=== PATIENT | male | born 1950 | race Caucasian/White ===

== ENCOUNTER → 2020-04-03 10:52 | Outpatient (CLI) | payer MEDICARE, OTHER, SELFPAY ==
--- NOTE | 2020-04-03 10:58 | DI.RAD.S_ITS ---
PROCEDURE: XR CERVICAL SPINE 2V OR 3V INDICATIONS: Neck pain TECHNIQUE: 3 view(s) of the cervical spine were acquired. COMPARISON: None. FINDINGS: Bones: No fractures or dislocations to the C7-T1 level. The lateral masses of C1 appear intact on the odontoid view. No suspicious bony lesions. There is trace C4 on C5 and C5 on C6 retrolisthesis. Moderate degenerative changes including intervertebral disc space narrowing and osteophytosis are noted throughout the cervical spine. Soft tissues: No prevertebral soft tissue swelling. IMPRESSION: Degenerative change and trace retrolisthesis. Dictated by: Estelita Palma M.D. on 04/03/2020 at 14:57 Approved by: Estelita Palma M.D. on 04/03/2020 at 14:58
[2020-04-03 12:33] LABS: Creatinine Urine Random 108.7 mg/dL
[2020-04-03 12:38] LABS: Microalbumin Urine Random < 0.6 mg/dL (0-1.6)
== END ==
PROVIDERS: PCP Student in an Organized Health Care Education/Training Program; Referring Provider Student in an Organized Health Care Education/Training Program; Visit Provider Student in an Organized Health Care Education/Training Program
DX: M54.2 Cervicalgia (principal); E11.9 Type 2 diabetes mellitus without complications
CPT/HCPCS: 72040; 82043; 82570

== ENCOUNTER → 2020-06-10 10:15 | Outpatient (CLI) | payer MEDICARE, OTHER, SELFPAY ==
[2020-06-10] MEDS: COVID-19 VACC #1, MRNA(MOD) 100 MCG/0.5 ML VIAL IM (10:27)
== END ==
PROVIDERS: PCP Student in an Organized Health Care Education/Training Program; Visit Provider Internal Medicine
DX: Z23 Encounter for immunization (principal)
CPT/HCPCS: 0011A; 91301

== ENCOUNTER → 2020-07-08 09:55 | Outpatient (CLI) | payer MEDICARE, OTHER, SELFPAY ==
[2020-07-08 10:44] LABS: Hemoglobin A1C% w Est Avg Glu 6.2 % (4.0-6.0)
== END ==
PROVIDERS: PCP Student in an Organized Health Care Education/Training Program; Referring Provider Student in an Organized Health Care Education/Training Program; Visit Provider Student in an Organized Health Care Education/Training Program
DX: E11.9 Type 2 diabetes mellitus without complications (principal)
CPT/HCPCS: 36415; 83036

== ENCOUNTER → 2020-07-08 10:17 | Outpatient (CLI) | payer MEDICARE, OTHER, SELFPAY ==
[2020-07-08] MEDS: COVID-19 VACC #2, MRNA(MOD) 100 MCG/0.5 ML VIAL IM (10:31)
== END ==
PROVIDERS: PCP Student in an Organized Health Care Education/Training Program; Visit Provider Internal Medicine
DX: Z23 Encounter for immunization (principal)
CPT/HCPCS: 0012A; 91301

== ENCOUNTER → 2020-10-14 10:11 | Outpatient (CLI) | payer MEDICARE, OTHER, SELFPAY ==
[2020-10-14 11:21] LABS: Hemoglobin A1C% w Est Avg Glu 6.1 % (4.0-6.0)
[2020-10-14 11:33] LABS: Alanine Aminotransferase 16 IU/L (<50); Albumin 3.9 g/dL (3.5-5.0); Albumin Globulin Ratio 1.6 (1.0-2.8); Alkaline Phosphatase 52 U/L (38-126); Aspartate Aminotransferase 21 IU/L (17-59); BUN Creatinine Ratio 20.7 (6-22); Bilirubin Total 0.3 mg/dL (0.2-1.3); Blood Urea Nitrogen 23 mg/dL (9-20); Calcium 9.5 mg/dL (8.4-10.2); Carbon Dioxide 28 mmol/L (22-32); Chloride 103 mmol/L (98-107); Estimated Glomerular Filt Rate > 60.0 mL/min (>60); Globulin 2.4 g/dL (1.7-4.1); Glucose 107 mg/dL (80-110); HEMOLYSIS < 15 (0-50); Sodium 137 mmol/L (137-145); Total Protein 6.3 g/dL (6.3-8.2)
[2020-10-14 11:37] LABS: Potassium 5.1 mmol/L (3.4-5.1)
== END ==
PROVIDERS: PCP Student in an Organized Health Care Education/Training Program; Referring Provider Student in an Organized Health Care Education/Training Program; Visit Provider Student in an Organized Health Care Education/Training Program
DX: E11.9 Type 2 diabetes mellitus without complications (principal); I10 Essential (primary) hypertension
CPT/HCPCS: 36415; 80053; 83036

== ENCOUNTER → 2020-10-21 11:28 | Outpatient (CLI) | payer MEDICARE, OTHER, SELFPAY ==
[2020-10-21 12:45] LABS: Prostate Specific Antigen 3.68 ng/mL (0.10-4.00)
== END ==
PROVIDERS: PCP Student in an Organized Health Care Education/Training Program; Referring Provider Specialist; Visit Provider Specialist
DX: N40.1 Benign prostatic hyperplasia with lower urinary tract symptoms (principal); N13.8 Other obstructive and reflux uropathy; Z80.42 Family history of malignant neoplasm of prostate
CPT/HCPCS: 36415; 84153; 99213

== ENCOUNTER → 2021-04-15 10:45 | Outpatient (CLI) | payer MEDICARE, OTHER, SELFPAY | PROVIDERS: PCP Student in an Organized Health Care Education/Training Program; Referring Provider Student in an Organized Health Care Education/Training Program; Visit Provider Student in an Organized Health Care Education/Training Program | DX: E11.9 Type 2 diabetes mellitus without complications (principal) | CPT/HCPCS: 36415; 83036 ==

== ENCOUNTER → 2021-10-09 09:03 | Outpatient (CLI) | payer MEDICARE, OTHER, SELFPAY ==
[2021-10-09 10:14] LABS: Creatinine Urine Random 181.4 mg/dL
[2021-10-09 10:22] LABS: Microalbumin Urine Random < 0.6 mg/dL (0-1.6)
[2021-10-09 10:29] LABS: Hemoglobin A1C% w Est Avg Glu 6.8 % (4.0-6.0)
[2021-10-09 11:03] LABS: Aspartate Aminotransferase 23 IU/L (17-59); BUN Creatinine Ratio 15.2 (6-22); Blood Urea Nitrogen 17 mg/dL (9-20); Calcium 9.1 mg/dL (8.4-10.2); Carbon Dioxide 29 mmol/L (22-32); Chloride 104 mmol/L (98-107); Cholesterol 195 mg/dL (140-199); Estimated Glomerular Filt Rate > 60 mL/min (>60); Glucose 133 mg/dL (80-110); HDL Cholesterol 43 mg/dL (40-60); HEMOLYSIS < 15 (0-50); LDL Cholesterol Calculated 114 mg/dL (<100); Potassium 4.5 mmol/L (3.4-5.1); Sodium 139 mmol/L (137-145); Triglycerides 191 mg/dL (35-150)
[2021-10-09 11:32] LABS: Prostate Specific Antigen 4.46 ng/mL (0.10-4.00)
== END ==
PROVIDERS: Student in an Organized Health Care Education/Training Program; PCP Internal Medicine; Referring Provider Specialist; Visit Provider Specialist
DX: R97.20 Elevated prostate specific antigen [PSA]; E11.9 Type 2 diabetes mellitus without complications; E11.69 Type 2 diabetes mellitus with other specified complication; E78.5 Hyperlipidemia, unspecified
CPT/HCPCS: 36415; 80048; 80061; 82043; 82570; 83036; 84153; 84450

== ENCOUNTER → 2022-01-27 09:37 | Outpatient (CLI) | payer MEDICARE, OTHER, SELFPAY ==
[2022-01-27 10:53] LABS: Hemoglobin A1C% w Est Avg Glu 6.2 % (4.0-6.0)
[2022-01-27 11:30] LABS: Prostate Specific Antigen 3.62 ng/mL (0.10-4.00)
== END ==
PROVIDERS: PCP Internal Medicine; Referring Provider Specialist; Visit Provider Specialist
DX: R97.20 Elevated prostate specific antigen [PSA] (principal); E11.69 Type 2 diabetes mellitus with other specified complication; E78.5 Hyperlipidemia, unspecified
CPT/HCPCS: 36415; 83036; 84153

== ENCOUNTER → 2022-07-28 09:21 | Outpatient (CLI) | payer MEDICARE, OTHER, SELFPAY ==
[2022-07-28 11:10] LABS: Hemoglobin A1C% w Est Avg Glu 6.5 % (4.0-6.0)
[2022-07-28 11:11] LABS: HEMOLYSIS < 15 (0-50)
[2022-07-28 11:16] LABS: BUN Creatinine Ratio 15.7 (6-22); Blood Urea Nitrogen 20 mg/dL (9-20); Calcium 8.4 mg/dL (8.4-10.2); Carbon Dioxide 27 mmol/L (22-32); Chloride 104 mmol/L (98-107); Cholesterol 174 mg/dL (140-199); Estimated Glomerular Filt Rate > 60 mL/min (>60); Glucose 114 mg/dL (80-110); HDL Cholesterol 47 mg/dL (40-60); LDL Cholesterol Calculated 108 mg/dL (<100); Potassium 4.1 mmol/L (3.4-5.1); Sodium 139 mmol/L (137-145); Triglycerides 96 mg/dL (35-150)
[2022-07-30 10:05] LABS: Prostate Specific Antigen 4.59 ng/mL (0.10-4.00)
== END ==
PROVIDERS: PCP Internal Medicine; Referring Provider Internal Medicine; Visit Provider Internal Medicine
DX: E11.69 Type 2 diabetes mellitus with other specified complication (principal); E78.5 Hyperlipidemia, unspecified; N40.1 Benign prostatic hyperplasia with lower urinary tract symptoms; N13.8 Other obstructive and reflux uropathy
CPT/HCPCS: 36415; 80048; 80061; 83036; 84153

== ENCOUNTER → 2022-08-19 08:39 | Outpatient (CLI) | payer MEDICARE, OTHER, SELFPAY ==
--- NOTE | 2022-08-19 08:42 | DI.RAD.S_ITS ---
PROCEDURE: XR CHEST 2V INDICATIONS: r/o thoracic aneurysm TECHNIQUE: 2 views of the chest were acquired. COMPARISON: None. FINDINGS: Surgical changes and devices: None. Lungs and pleura: Lungs are clear. No pleural effusions or pneumothorax. Mediastinum: Mediastinal contours are normal. Heart size is normal. Bones and chest wall: No suspicious bony abnormalities. Soft tissues appear unremarkable. IMPRESSION: No definite/obvious thoracic aortic aneurysm identified however CT would be more sensitive. CT angiogram of the chest could be obtained if clinically indicated Dictated by: Maximsu Muñoz M.D. on 08/19/2022 at 10:00 Approved by: Maximus Muñoz M.D. on 08/19/2022 at 10:05
== END ==
PROVIDERS: PCP Internal Medicine; Referring Provider Internal Medicine; Visit Provider Internal Medicine
DX: I71.20 Thoracic aortic aneurysm, without rupture, unspecified (principal)
CPT/HCPCS: 71046

== ENCOUNTER → 2022-09-09 15:46 | Outpatient (CLI) | payer MEDICARE, OTHER, SELFPAY ==
[2022-09-11 08:51] LABS: PSA Free % 17.1 % (.); PSA, Total 4.2 ng/mL (0.0-4.0)
== END ==
PROVIDERS: PCP Internal Medicine; Referring Provider Specialist; Visit Provider Specialist
DX: R97.20 Elevated prostate specific antigen [PSA] (principal)
CPT/HCPCS: 36415; 84153; 84154

== ENCOUNTER → 2023-01-25 08:44 | Outpatient (CLI) | payer MEDICARE, OTHER, SELFPAY ==
[2023-01-25 10:25] LABS: Hemoglobin A1C% w Est Avg Glu 6.2 % (4.0-6.0)
[2023-01-25 10:37] LABS: Aspartate Aminotransferase 24 IU/L (17-59); BUN Creatinine Ratio 16.7 (6-22); Blood Urea Nitrogen 18 mg/dL (9-20); Calcium 8.9 mg/dL (8.4-10.2); Carbon Dioxide 26 mmol/L (22-32); Chloride 103 mmol/L (98-107); Cholesterol 143 mg/dL (140-199); Estimated Glomerular Filt Rate > 60 mL/min (>60); Glucose 126 mg/dL (80-110); HDL Cholesterol 48 mg/dL (40-60); HEMOLYSIS < 15 (0-50); LDL Cholesterol Calculated 68 mg/dL (<100); Potassium 4.5 mmol/L (3.4-5.1); Sodium 136 mmol/L (137-145); Triglycerides 136 mg/dL (35-150)
[2023-01-25 10:48] LABS: Creatinine Urine Random 112.7 mg/dL
[2023-01-25 10:59] LABS: Microalbumin Urine Random < 0.6 mg/dL (0-1.6)
[2023-01-27 08:42] LABS: PSA Free % 15.6 % (.); PSA, Total 3.6 ng/mL (0.0-4.0)
== END ==
PROVIDERS: PCP Internal Medicine; Referring Provider Specialist; Visit Provider Specialist
DX: E11.69 Type 2 diabetes mellitus with other specified complication (principal); N13.8 Other obstructive and reflux uropathy; N40.1 Benign prostatic hyperplasia with lower urinary tract symptoms; R97.20 Elevated prostate specific antigen [PSA]; E78.5 Hyperlipidemia, unspecified
CPT/HCPCS: 36415; 80048; 80061; 82043; 82570; 83036; 84153; 84154; 84450

== ENCOUNTER → 2023-08-31 08:42 | Outpatient (CLI) | payer MEDICARE, OTHER, SELFPAY ==
[2023-08-31 10:53] LABS: Hemoglobin A1C% w Est Avg Glu 7.1 % (4.0-6.0)
[2023-08-31 11:10] LABS: Aspartate Aminotransferase 21 IU/L (17-59); BUN Creatinine Ratio 14.8 (6-22); Blood Urea Nitrogen 19 mg/dL (9-20); Calcium 9.1 mg/dL (8.4-10.2); Carbon Dioxide 29 mmol/L (22-32); Chloride 106 mmol/L (98-107); Cholesterol 143 mg/dL (140-199); Estimated Glomerular Filt Rate 59 mL/min (>60); Glucose 129 mg/dL (80-110); HDL Cholesterol 52 mg/dL (40-60); HEMOLYSIS < 15 (0-50); LDL Cholesterol Calculated 66 mg/dL (<100); Potassium 4.6 mmol/L (3.4-5.1); Sodium 140 mmol/L (137-145); Triglycerides 125 mg/dL (35-150)
[2023-08-31 11:31] LABS: Prostate Specific Antigen 4.95 ng/mL (0.10-4.00)
== END ==
LOC: LAB 08:44
PROVIDERS: PCP Internal Medicine; Referring Provider Specialist; Visit Provider Specialist
DX: R97.20 Elevated prostate specific antigen [PSA] (principal); E11.69 Type 2 diabetes mellitus with other specified complication; E78.5 Hyperlipidemia, unspecified
CPT/HCPCS: 36415; 80048; 80061; 83036; 84153; 84450

== ENCOUNTER → 2023-11-01 09:50 | Outpatient (CLI) | payer MEDICARE, OTHER, SELFPAY | LOC: LAB 09:51 | PROVIDERS: PCP Internal Medicine; Referring Provider Specialist; Visit Provider Specialist | DX: R97.20 Elevated prostate specific antigen [PSA] (principal) | CPT/HCPCS: 36415; 84153; 84154 ==

== ENCOUNTER → 2023-12-21 10:51 | Outpatient (CLI) | payer MEDICARE, OTHER, SELFPAY ==
--- NOTE | 2023-12-21 10:53 | DI.RAD.S_ITS ---
PROCEDURE: [id number] W PEL IF PERFORMED INDICATIONS: Left hip pain TECHNIQUE: AP pelvis with lateral view(s) of the left hip(s). COMPARISON: None. FINDINGS: Bones: No fractures or dislocations. Moderate bilateral hip joint degeneration with joint space narrowing and marginal spurring. Degenerative changes of the visualized lower lumbar spine and pubic symphysis. Pelvic ring appears intact. No suspicious bony lesions. Soft tissues: The visualized bowel gas pattern is normal. No suspicious soft tissue calcifications. IMPRESSION: No acute osseous abnormalities. Moderate bilateral hip joint degeneration. Dictated by: Ajay Curran M.D. on 12/21/2023 at 16:02 Approved by: Ajay Curran M.D. on 12/21/2023 at 16:03
== END ==
PROVIDERS: PCP Internal Medicine; Referring Provider Nurse Practitioner Family; Visit Provider Nurse Practitioner Family
DX: S76.012A Strain of muscle, fascia and tendon of left hip, initial encounter (principal); M16.0 Bilateral primary osteoarthritis of hip; X58.XXXA Exposure to other specified factors, initial encounter
CPT/HCPCS: 73502

== ENCOUNTER → 2024-01-01 15:12 | Outpatient (CLI) | payer MEDICARE, OTHER, SELFPAY ==
--- NOTE | 2024-01-01 15:13 | DI.MRI.S_ITS ---
PROCEDURE: MR HIP LT WO CON INDICATIONS: Injury to L hip; persistent pain anterior proximal TECHNIQUE: Noncontrast coronal T1 spin echo and STIR through the bony pelvis. Coronal and axial T2 fast spin echo with fat saturation, sagittal T1 spin echo, and oblique axial T2 fast spin echo with fat saturation through the hip. COMPARISON: [facility], , [id number] W PEL IF PERFORMED, 12/21/2023, 11:03. FINDINGS: Image quality: Excellent. Bones and joints: Bone marrow of the pelvic ring and proximal femurs show normal signal throughout no acute osseous fracture. Oval mildly T8w-umiblqmrzgns lesion is seen in the left jorge sacrum measuring approximately 2.3 cm (image 11 of series 4). Additional smaller 1.2 cm mildly I9l-xcxmystugkha lesion is seen in the posterior left acetabulum (12/5). Additional lesion is partially imaged the L3 vertebral body. No avascular necrosis of the femoral head. Multilevel degenerative disc disease and facet hypertrophy in the included spine with suspected spinal canal narrowing. Tendons and ligaments: The gluteus medius and minimus tendons demonstrate mild tendinosis at the distal insertions . The proximal iliotibial band appears intact. Mild edema in the distal iliopsoas muscle may indicate low-grade strain. The iliopsoas tendon appears intact. Trace iliopsoas bursal fluid. The origin of the hamstring tendon is intact at the ischial tuberosity. The tendons for the direct and indirect heads of the rectus femoris muscle appear intact. Labrum and cartilage: Mild labral degeneration. No displaced labral tear. Moderate partial-thickness cartilage thinning and irregularity in the superior hip with small marginal osteophytes. Moderate left hip effusion. Normal morphology of the femoral head and acetabulum. Soft tissues: Visualized muscles demonstrate normal bulk and internal signal. Quadratus femoris muscle demonstrates no internal edema to suggest ischiofemoral impingement. The proximal sciatic neurovascular bundle appears normal adjacent to the hamstring tendons. Pelvic soft tissues demonstrate no acute abnormality. Small fat containing left inguinal hernia. IMPRESSION: 1. A few circumscribed nonspecific mildly B4j-ozisjgyjxavj osseous lesions are seen involving the left hemisacrum, left acetabulum, and likely the L3 vertebral body. Findings could be related to benign lesions such as hemangiomas although metastatic disease or multiple myeloma are not excluded. Recommend correlation with patient history. Consider CT and/or nuclear medicine bone scan for further evaluation. 2. 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 Moderate left hip effusion. Mild labral degeneration. 3. Mild distal left gluteus medius and minimus tendinosis. 4. Mild edema in the distal iliopsoas muscle could indicate a low-grade strain. 5. Multilevel degenerative changes in the lumbar spine with suspected spinal canal narrowing. Approved by: Maximus Becerra M.D. on 01/03/2024 at 11:18
== END ==
PROVIDERS: PCP Internal Medicine; Referring Provider Physician Assistant; Visit Provider Physician Assistant
DX: M16.0 Bilateral primary osteoarthritis of hip (principal); M25.552 Pain in left hip; M24.152 Other articular cartilage disorders, left hip; M89.9 Disorder of bone, unspecified; M94.252 Chondromalacia, left hip; M25.452 Effusion, left hip
CPT/HCPCS: 73721

== ENCOUNTER → 2024-01-11 09:32 | Outpatient (CLI) | payer MEDICARE, OTHER, SELFPAY ==
[2024-01-11 10:31] LABS: Hemoglobin A1C% w Est Avg Glu 6.5 % (4.0-6.0)
[2024-01-11 10:47] LABS: Aspartate Aminotransferase 23 IU/L (17-59); BUN Creatinine Ratio 18.3 (6-22); Blood Urea Nitrogen 20 mg/dL (9-20); Calcium 9.2 mg/dL (8.4-10.2); Carbon Dioxide 25 mmol/L (22-32); Chloride 103 mmol/L (98-107); Cholesterol 138 mg/dL (140-199); Estimated Glomerular Filt Rate > 60 mL/min (>60); Glucose 122 mg/dL (80-110); HDL Cholesterol 49 mg/dL (40-60); HEMOLYSIS < 15 (0-50); LDL Cholesterol Calculated 64 mg/dL (<100); Potassium 4.5 mmol/L (3.4-5.1); Sodium 136 mmol/L (137-145); Triglycerides 127 mg/dL (35-150)
[2024-01-11 11:15] LABS: Prostate Specific Antigen 4.93 ng/mL (0.10-4.00)
[2024-01-11 11:48] LABS: Creatinine Urine Random 83.34 mg/dL
[2024-01-11 12:00] LABS: Microalbumin Urine Random < 0.6 mg/dL (0-1.6)
== END ==
PROVIDERS: PCP Internal Medicine; Referring Provider Internal Medicine; Visit Provider Internal Medicine
DX: E11.69 Type 2 diabetes mellitus with other specified complication (principal); N40.1 Benign prostatic hyperplasia with lower urinary tract symptoms; E78.5 Hyperlipidemia, unspecified; N13.8 Other obstructive and reflux uropathy; C90.00 Multiple myeloma not having achieved remission
CPT/HCPCS: 36415; 80048; 80061; 82043; 82570; 83036; 84153; 84155; 84165; 84450

== ENCOUNTER → 2024-02-04 09:09 | Outpatient (CLI) | payer MEDICARE, OTHER, SELFPAY ==
--- NOTE | 2024-02-04 09:10 | DI.MRI.S_ITS ---
PROCEDURE: MR HIP LT W CON INDICATIONS: LEFT HIP PAIN TECHNIQUE: After the administration of 10 mL of dilute intra-articular Gadolinium contrast, coronal STIR of the bony pelvis; coronal and oblique axial T1 spin echo with fat saturation, axial T2 fast spin echo with fat saturation, sagittal T1 spin echo with and without fat saturation of the involved hip. COMPARISON: None. FINDINGS: Image quality: Exam is limited by patient motion artifacts. Abnormal moderate increased T2 weighted signal, edema with thickening in the biceps femoris muscle at the origin on the ischial tuberosity suggests injury/strain which may be acute or chronic. Moderate increased T2 weighted signal/edema in the rectus femoris, obturator externus and iliopsoas muscles and tendons, and in the iliofemoral ligament suggests injury/strain. Moderate increased T2 weighted signal in the ischiofemoral ligament, gluteus medius and minimus muscle and tendons, inferior gemellus and in the obturator internus suggesting injury/strain. Bones and joints: Moderate degenerate changes of the hip with diffuse cartilaginous thinning, joint space narrowing and marginal osteophytes without MR evidence of fracture, no dislocation and no significant bone marrow edema. Degenerated labrum is noted anterior and posterior rib likely chronic changes. Bone marrow of the pelvic ring and proximal femurs show normal signal throughout. No intraosseous lesion. No avascular necrosis of the femoral head. IMPRESSION: No MR evidence of fracture. Evidence of acute and possible acute on chronic injury/strain of multiple muscles and tendons of the hip anteriorly, as discussed above. Most notably findings involving the biceps femoris, rectus femoris, obturator externus and iliopsoas muscles and tendons, ischiofemoral ligament, gluteus medius and minimus muscle and tendons, inferior gemellus and in the obturator internus. Follow-up suggested Dictated by: Kenny Garcia M.D. on 02/06/2024 at 12:46 Approved by: Kenny Garcia M.D. on 02/06/2024 at 13:03
== END ==
PROVIDERS: PCP Internal Medicine; Referring Provider Orthopaedic Surgery Sports Medicine; Visit Provider Orthopaedic Surgery Sports Medicine
DX: M25.552 Pain in left hip (principal)
CPT/HCPCS: 73722; A9579

== ENCOUNTER → 2024-04-04 10:12 | Outpatient (CLI) | payer MEDICARE, OTHER, SELFPAY | PROVIDERS: PCP Internal Medicine; Visit Provider Urology | DX: R97.20 Elevated prostate specific antigen [PSA] (principal); N40.1 Benign prostatic hyperplasia with lower urinary tract symptoms; N13.8 Other obstructive and reflux uropathy | CPT/HCPCS: 87086 ==

== ENCOUNTER 2024-04-09 06:26 | Day surgery (SDC) | payer MEDICARE, OTHER, SELFPAY ==
[2024-04-05 12:24] VITALS: BMI 28.8
[2024-04-09] VITALS (12 sets, daily range): BP systolic 90–117; BP diastolic 60–82; PULSE 73–98; RESP 10–17; TEMP 36.4–36.7; O2SAT 94–98; BMI 26.7
--- NOTE | 2024-04-09 | PATH_ITS ---
[facility] Accession Number: [id number] No. of containers..01 Tissue . 01 Material submitted: . prostate - PROSTATE CHIPS . 01 Diagnosis: PROSTATE CHIPS, TRANSURETHRAL PROSTATE TISSUE RESECTION (TUPTR): Benign prostatic tissue, weight 3 grams, with glandular and stromal hypertrophy. Benign urothelium also present. Negative for atypia and malignancy. [facility] 04/11/2024 1427 Local . 01 Electronically signed: . Syeda Gan MD, Pathologist NPI- [id number] . 01 Gross description: . Received in formalin with two patient identifiers and prostate chips, are multiple meyer soft tissue fragments admixed with hemorrhagic material aggregating to 5.0 x 4.7 x 1.0 cm and weighing 3 grams. The specimen is submitted entirely in A1-A3. ([id number]) /MRV 04/10/20242034 Local . 01 Pathologist provided ICD-10: N40.1 . 01 CPT . 253721 Specimen Comment: A courtesy copy of this report has been sent to [facility] Pathology Performed at: [address] [address], [place], [place] [id number] MD Irwin Porter MD Phone: [phone]
[2024-04-09] MEDS: LACTATED RINGERS 1,000 ML 21 ML IV (07:04)
[2024-04-09 07:10] LABS: COVID19 -Nasal RAPID Negative (Negative)
--- NOTE | 2024-04-09 07:39 | PM.PREOP ---
Pre-operative Note COVID-19 COVID-19 status: Not tested Interval Note History & Physical reviewed/Exam performed by Physician: Yes Changes to H&P: No
[2024-04-09] MEDS: CEFAZOLIN VIAL 2 GM in SODIUM CHLORIDE 0.9% 100 ML IV (07:56)
--- NOTE | 2024-04-09 08:04 | SUR.OPER ---
Lithotomy on padded OR bed, head on pillow, arms secured on padded arm boards at <90 degrees abduction. Legs secured in padded yellow fins stirrups.
--- NOTE | 2024-04-09 09:18 | PM.OP.1 ---
Procedure & Clinicians Procedure: Cystoscopy Aquablation Same procedure as scheduled: Yes Indications: 73 y/o M w/ BPH and bothersome LUTS who strongly desires surgical intervention due to his failed medical management. Surgeon: Tomy Williamson Click Yes if Unassisted: Yes Anesthesia Type: General Operative Notes Findings: Small prostate gland, no intravesical median lobe, coaptating lateral prostatic lobes Closure Type: not applicable Specimen(s): other (prostate chips) Applied: catheter Estimated Blood Loss (mL): 50 Blood products transfused: none Procedure in detail: After informed consent was obtained, the patient was identified brought to the operating room where he was placed in his supine position on the table.? Once there anesthesia was induced and maintained.? Ensuring an adequate level of anesthesia the patient was transitioned to the lithotomy position where after time-out he was prepped.? After prepping, ensuring an adequate level of anesthesia, administration IV antibiotics and time-out 60 cc of ultrasound gel was instilled within the rectum and the ultrasound probe which had been attached to the TRUS stepper which was attached to the TRUS stepper articulating arm which was secured to the bed was advanced into the rectum under direct vision via the ultrasound.? The ultrasound probe was then aligned and confirmation made that the prostate was centered and aligned in both the sagittal and transverse views.? The bladder neck, verumontanum, central and transitional zones were identified.? With the ultrasound in place and adjusted the patient was then draped in a sterile fashion. With the patient draped the [employer] [place] aqua beam handpiece was then inserted through the urethra and advanced into the bladder.? Cystoscopy was then performed and no concerning bladder mass or lesions were noted.? Bilateral ureteral orifices were noted to be orthotopic in nature.? As the cystoscope was advanced the level of the sphincter, verumontanum, bladder neck were all identified via ultrasound and under direct vision.? The aqua beam hand place was then secured to the handpiece articulating arm which had been secured to the bed.? The Aquablation handpiece and TRUS probe were confirmed to be parallel and colinear.? Confirmation was then made that the aqua beam handpiece and nozzle was centered and anterior to the bladder neck. ?The cystoscope was then retracted under direct vision in the sphincter and verumontanum were identified.? The tip of the cystoscope was then placed proximal to the external sphincter.? Compression was applied with the TRUS probe to the prostate.? The alignment of the TRUS probe and aqua beam handpiece was once again confirmed.? Horizontal alignment of the handpiece water jet was then performed.? With these adjustments made, the treatment zones were then planned using real-time ultrasound.? In the largest transverse view of the prostate the depth and radial angles were determined and set again in the transverse view of the prostate.? In the longitudinal and sagittal view the Aquablation nozzle was identified and its position registered with the software and robot.? The treatment contours were then determined and adjusted to reflect the intended margins of resection.? Following our plan confirmation, the Aquablation resection treatment was started.? A 2nd pass was then completed in similar fashion after the 1st pass had been completed.? At this point, the Aqua hand piece was removed from the urethra. The 26Fr resectoscope was then inserted into the urethra and cystoscopy was repeated.? The [employer] financial reporting director was utilized to evacuate the blood clots from the bladder.? The bladder neck was then resected using the bipolar Gyrus loop.? Bilateral ureteral orifices were again identified and noted to be intact at case end.? Hemostasis was obtained and noted to be excellent at case end.? The resectoscope was then removed and a 24Fr Doreen 3-way hematuria catheter was inserted through the urethra and into the bladder.? 45cc of sterile water was utilized for balloon insufflation.? Efflux was noted to be clear at case end.? Anesthesia was reversed, he was extubated in the OR and transferred to the PACU in stable condition for recovery. Complications: none Post-operative Condition: stable Disposition: PACU Plan for aftercare: Will continue to run CBI for a few hours in the PACU. If his efflux remains relatively clear without clots, will discharge home with catheter in place and have him return to Urology clinic on 11 Apr 2024 for a voiding trial. If his efflux becomes more red or he develops clots that need irrigating, will admit overnight for CBI and likely remove flanagan catheter on the morning of 10 Apr 2024.
[2024-04-09] MEDS: OXYCODONE/ACETAMINOPHEN 5/325 TABLET 1 TAB PO (09:33)
== END 2024-04-09 13:12 | disposition home or self-care (01) ==
LOC: OR 06:27 → AC 06:29
PROVIDERS: PCP Internal Medicine; Referring Provider Urology; Visit Provider Urology
PROC: 0VT08ZZ Resection of Prostate, Via Natural or Artificial Opening Endoscopic (ICD-10-PCS; CPT 0421T; principal; 2024-04-09 07:45)
DX: N40.1 Benign prostatic hyperplasia with lower urinary tract symptoms (principal); R39.12 Poor urinary stream; R39.15 Urgency of urination; R35.1 Nocturia; Z11.52 Encounter for screening for COVID-19
CPT/HCPCS: 0421T; 87635; C2596; J0330; J0690; J1100; J1885; J2405; J2704; J3010

== ENCOUNTER → 2024-04-11 13:53 | Outpatient (CLI) | payer MEDICARE, OTHER, SELFPAY ==
[2024-04-11 14:37] LABS: Hematocrit 43.1 % (41-53); Hemoglobin 14.9 g/dL (13.5-17.5); Mean Corpuscular HGB Conc 34.7 % (30-36); Mean Corpuscular Hemoglobin 32.5 PG (26-34); Mean Corpuscular Volume 93.8 fL (80-100); Platelet Count 260 X10^3/uL (150-400); Red Blood Cell Count 4.59 X10^6/uL (4.5-5.9); Red Cell Distribution Width 13.3 % (11.6-14.8); White Blood Cell Count 7.6 X10^3/uL (4.5-11.0)
[2024-04-11 14:45] LABS: Hemoglobin A1C% w Est Avg Glu 6.8 % (4.0-6.0)
[2024-04-11 14:58] LABS: Alanine Aminotransferase 21 IU/L (<50); Albumin 4.2 g/dL (3.5-5.0); Albumin Globulin Ratio 1.8 (1.0-2.8); Alkaline Phosphatase 74 U/L (38-126); Aspartate Aminotransferase 26 IU/L (17-59); BUN Creatinine Ratio 17.9 (6-22); Bilirubin Total 0.5 mg/dL (0.2-1.3); Blood Urea Nitrogen 22 mg/dL (9-20); C-Reactive Protein Quant < 0.5 mg/dL (<1.0); Calcium 9.4 mg/dL (8.4-10.2); Carbon Dioxide 27 mmol/L (22-32); Chloride 101 mmol/L (98-107); Estimated Glomerular Filt Rate > 60 mL/min (>60); Globulin 2.4 g/dL (1.7-4.1); Glucose 175 mg/dL (80-110); HEMOLYSIS < 15 (0-50); Potassium 4.5 mmol/L (3.4-5.1); Sodium 136 mmol/L (137-145); Total Protein 6.6 g/dL (6.3-8.2)
[2024-04-11 15:28] LABS: TSH w/ Reflex to FT4 1.17 uIU/mL (0.47-4.68)
[2024-04-11 15:41] LABS: Erythrocyte Sedimentation Rate 11 MM/HR (0-15)
[2024-04-11 15:47] LABS: Vitamin B12 > 1000 pg/mL (239-931)
[2024-04-13 15:08] LABS: Albumin 3.6 g/dL (2.9-4.4); Alpha-1-Globulin 0.3 g/dL (0.0-0.4); Alpha-2-Globulin 0.9 g/dL (0.4-1.0); Gamma Globulin 0.9 g/dL (0.4-1.8); Protein, Total 6.6 g/dL (6.0-8.5)
== END ==
PROVIDERS: PCP Internal Medicine; Referring Provider Internal Medicine; Visit Provider Internal Medicine
DX: E11.69 Type 2 diabetes mellitus with other specified complication (principal); E78.5 Hyperlipidemia, unspecified; E53.8 Deficiency of other specified B group vitamins; M25.552 Pain in left hip; M16.0 Bilateral primary osteoarthritis of hip
CPT/HCPCS: 36415; 80053; 82607; 83036; 84155; 84165; 84443; 85027; 85651; 86140

== ENCOUNTER → 2024-08-20 08:20 | Outpatient (CLI) | payer MEDICARE, OTHER, SELFPAY ==
--- NOTE | 2024-08-20 08:25 | DI.MRI.S_ITS ---
PROCEDURE: MR PELIS WO/W CON INDICATIONS: Lesion of pelvic bone TECHNIQUE: Noncontrast coronal T1 spin echo and STIR, sagittal T1 spin echo with fat saturation and STIR, axial T1 spin echo and T2 fast spin echo with fat saturation. After the administration of contrast, axial/sagittal/coronal T1 spin echo with fat saturation through the pelvis . COMPARISON: [facility], MR, MR HIP LT WO CON, 01/01/2024, 15:33. [facility], MR, MR HIP LT W CON, 02/04/2024, 9:37. FINDINGS: Image quality: Excellent. Bones: Compared to previous study, previously described 2.3 cm oval mildly T2 hyperintense lesion in left inferior sacrum is again seen currently measures 2.4 x 1.9 x 1.9 cm in largest transverse, AP and craniocaudal dimensions best seen on series 3, image 13 and series 5, image 15. No definite contrast enhancement is seen within this structure. Previously described 1.2 cm mildly T2 hyperintense lesion involving posterior left acetabulum is unchanged series 5, image 28 and show no gross contrast enhancement in this area. 2.5 x 2.4 cm mild heterogeneously T2 hyperintense structure is also seen involving right-side of L3 vertebral body best seen on series 3, image 17 and show no gross contrast enhancement. No other area of suspicious intraosseous lesion is seen. Diffusely heterogeneous marrow signal throughout visualized lower lumbar spine and bony pelvis is seen suggestive of hematopoietic marrow. No area of abnormal intraosseous enhancement. No acute fracture or dislocation. No evidence of avascular necrosis of femoral heads. Soft tissues: No enhancing soft tissue mass is seen. No pelvic free fluid. No abnormal bowel wall thickening. No bladder wall thickening. No pelvic lymphadenopathy by size criteria. No obvious intramuscular mass or fluid collection. No abnormal intramuscular enhancement. IMPRESSION: 1. 3 mildly heterogeneously T2 hyperintense lesions seen in right side of L3 vertebral body, left inferior sacrum and left posterior acetabulum as described above, essentially stable in size and overall appearance compared to 01/01/2024 study and show no definite contrast enhancement. Finding is suggestive of benign process such as intraosseous hemangioma. 2. No marrow edema. Heterogeneous marrow signal throughout lower lumbar spine and bony pelvis likely represent hematopoietic marrow. No area of abnormal intraosseous enhancement. 3. No enhancing pelvic soft tissue mass or abnormal intramuscular enhancement. No pelvic free fluid or free air. No drainable fluid collection. Dictated by: Jcarlos Zazueta M.D. on 08/20/2024 at 21:57 Approved by: Jcarlos Zazueta M.D. on 08/20/2024 at 22:06
[2024-08-20 09:51] LABS: Prostate Specific Antigen 2.92 ng/mL (0.10-4.00)
== END ==
PROVIDERS: Urology; PCP Internal Medicine
DX: R97.20 Elevated prostate specific antigen [PSA] (principal); M89.9 Disorder of bone, unspecified
CPT/HCPCS: 36415; 72197; 84153; A9579

== ENCOUNTER → 2025-02-26 08:30 | Outpatient (CLI) | payer MEDICARE, OTHER, SELFPAY ==
[2025-02-26 09:54] LABS: Hematocrit 44.3 % (41-53); Hemoglobin 15.0 g/dL (13.5-17.5); Mean Corpuscular HGB Conc 33.7 % (30-36); Mean Corpuscular Hemoglobin 31.4 PG (26-34); Mean Corpuscular Volume 93.0 fL (80-100); Platelet Count 195 X10^3/uL (150-400)
[2025-02-26 10:03] LABS: Hemoglobin A1C% w Est Avg Glu 7.1 % (4.0-6.0)
[2025-02-26 10:22] LABS: Alanine Aminotransferase 19 IU/L (<50); Albumin 4.2 g/dL (3.5-5.0); Albumin Globulin Ratio 1.6 (1.0-2.8); Alkaline Phosphatase 63 U/L (38-126); Blood Urea Nitrogen 20 mg/dL (9-20); Calcium 9.1 mg/dL (8.4-10.2); Carbon Dioxide 28 mmol/L (22-32); Chloride 101 mmol/L (98-107); Cholesterol 157 mg/dL (140-199); Estimated Glomerular Filt Rate > 60 mL/min (>60); Globulin 2.6 g/dL (1.7-4.1); Glucose 146 mg/dL (70-99); HDL Cholesterol 58 mg/dL (40-60); HEMOLYSIS < 15 (0-50); Potassium 4.6 mmol/L (3.4-5.1); Sodium 135 mmol/L (137-145); Total Protein 6.8 g/dL (6.3-8.2); Triglycerides 141 mg/dL (35-150)
[2025-02-26 10:47] LABS: Prostate Specific Antigen 3.16 ng/mL (0.10-4.00)
== END ==
PROVIDERS: PCP Internal Medicine; Referring Provider Urology; Visit Provider Urology
DX: R97.20 Elevated prostate specific antigen [PSA] (principal); E11.69 Type 2 diabetes mellitus with other specified complication; E78.5 Hyperlipidemia, unspecified
CPT/HCPCS: 36415; 80053; 80061; 82043; 82570; 83036; 84153; 85027

== ENCOUNTER → 2025-04-02 10:42 | Outpatient (CLI) | payer MEDICARE, OTHER, SELFPAY ==
--- NOTE | 2025-04-02 10:45 | DI.RAD.S_ITS ---
PROCEDURE: XR CHEST 2V INDICATIONS: 2m cough r/o pneumonia TECHNIQUE: 2 views of the chest were acquired. COMPARISON: [facility], CR, XR CHEST 2V, 08/19/2022, 8:39. FINDINGS: Surgical changes and devices: None. Lungs and pleura: Lungs are clear. No pleural effusions or pneumothorax. Mediastinum: Mediastinal contours are normal. Heart size is normal. Bones and chest wall: No suspicious bony abnormalities. Soft tissues appear unremarkable. IMPRESSION: No acute cardiopulmonary abnormality is seen. Dictated by: Ronnie Rollins M.D. on 04/02/2025 at 11:35 Approved by: Ronnie Rollins M.D. on 04/02/2025 at 11:35
== END ==
PROVIDERS: PCP Internal Medicine; Referring Provider Internal Medicine; Visit Provider Chiropractor
DX: R05.2 Subacute cough (principal)
CPT/HCPCS: 71046